=== PATIENT | female | born 2000 | race Caucasian/White ===

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

== ENCOUNTER 2022-03-15 15:05 | Emergency (ER) | payer OTHER ==
[~2022-03-15 15:05] MED LIST: BENTYL 10MG CAP10 MG PO; CYCLOBENZAPRINE10 MG PO; LODINE CAP 300300 MG PO; NORFLEX 100 MG100 MG PO; ZOFRAN4 MG PO
[2022-03-15 15:51] LABS: HEMOGLOBIN 12.4 gm/dl (12.3-15.3); RED BLOOD COUNT 4.28 M/UL (4.00-5.10); WHITE BLOOD COUNT 6.5 K/UL (4.5-11.0)
[2022-03-15 16:13] LABS: BUN/CREATININE RATIO 9 (0-10)
[2022-03-15] MEDS ORDERED: CEPHALEXIN500 MG PO (16:54)
== END 2022-03-15 17:46 | disposition home or self-care (01) ==
LOC: ER1 15:05
PROVIDERS: Emergency Medicine
DX: O20.0 Threatened abortion (principal); O99.891 Other specified diseases and conditions complicating pregnancy; R19.7 Diarrhea, unspecified; Z3A.01 Less than 8 weeks gestation of pregnancy; Z86.16 Personal history of COVID-19
CPT/HCPCS: 80053; 81001; 84702; 85025; 86900; 86901; 87086; 99284

== ENCOUNTER 2022-04-06 22:49 | Emergency (ER) | payer OTHER ==
[~2022-04-06 22:49] MED LIST changes: +CEPHALEXIN500 MG PO
[2022-04-07 00:03] LABS: HEMOGLOBIN 11.7 gm/dl (12.3-15.3); RED BLOOD COUNT 4.07 M/UL (4.00-5.10); WHITE BLOOD COUNT 9.8 K/UL (4.5-11.0)
[2022-04-07 00:39] LABS: BUN/CREATININE RATIO 11 (0-10)
[2022-04-07] MEDS ORDERED: MACROBID 100 M100 MG PO (03:20)
[2022-04-07] MEDS ORDERED: REGLAN10 MG PO (03:20)
[2022-04-08 22:06] LABS: CHLAMYDIA TRACHOMATIS, NAA Negative (Negative); NEISSERIA GONORRHOEAE, NAA Negative (Negative)
== END 2022-04-07 04:20 | disposition home or self-care (01) ==
LOC: ER1 22:49
PROVIDERS: Emergency Medicine; Physician Assistant
DX: O23.41 Unspecified infection of urinary tract in pregnancy, first trimester (principal); N39.0 Urinary tract infection, site not specified; O99.891 Other specified diseases and conditions complicating pregnancy; N89.8 Other specified noninflammatory disorders of vagina; Z3A.10 10 weeks gestation of pregnancy
CPT/HCPCS: 80053; 81001; 85025; 87086; 96361; 96374; 96375; 99283; J0696; J2765

== ENCOUNTER 2022-06-08 19:59 | Emergency (ER) | payer OTHER ==
[~2022-06-08 19:59] MED LIST changes: +MACROBID 100 M100 MG PO; +REGLAN10 MG PO
[2022-06-08 20:28] LABS: HEMOGLOBIN 11.6 gm/dl (12.3-15.3); RED BLOOD COUNT 3.9 M/UL (4.00-5.10); WHITE BLOOD COUNT 9.3 K/UL (4.5-11.0)
[2022-06-08 20:52] LABS: BUN/CREATININE RATIO 16 (0-10)
== END 2022-06-09 01:14 | disposition left against medical advice (07) ==
LOC: ER1 19:59
PROVIDERS: Student in an Organized Health Care Education/Training Program
DX: O99.891 Other specified diseases and conditions complicating pregnancy (principal); R42 Dizziness and giddiness; M54.9 Dorsalgia, unspecified; Z3A.19 19 weeks gestation of pregnancy
CPT/HCPCS: 80053; 81001; 85025; 99281